=== PATIENT | male | born 1970 | race Caucasian/White ===

== ENCOUNTER 2018-05-07 11:20 | Emergency (ER) | payer OTHER, MEDICAID | END 2018-05-07 12:59 | disposition home or self-care (01) | LOC: FTE 11:20 | DX: K08.89 Other specified disorders of teeth and supporting structures (principal); F17.210 Nicotine dependence, cigarettes, uncomplicated | CPT/HCPCS: 99283; Z7502 ==

== ENCOUNTER 2018-05-22 14:45 | Emergency (ER) | payer OTHER | END 2018-05-22 16:00 | disposition home or self-care (01) | LOC: FTE 14:45 | DX: R20.2 Paresthesia of skin (principal); Z87.891 Personal history of nicotine dependence | CPT/HCPCS: 99282; Z7502 ==

== ENCOUNTER 2018-05-27 17:44 | Emergency (ER) | payer SELFPAY, OTHER | END 2018-05-27 20:12 | disposition left against medical advice (07) | LOC: FTE 20:12 | DX: Z53.21 Procedure and treatment not carried out due to patient leaving prior to being seen by health care provider (principal) ==

== ENCOUNTER 2018-06-03 08:37 | Emergency (ER) | payer OTHER ==
[2018-06-03] MEDS: KETOROLAC 30 MG INJ IM (09:09)
== END 2018-06-03 09:17 | disposition home or self-care (01) ==
LOC: FTE 08:37
DX: M79.641 Pain in right hand (principal); Z87.891 Personal history of nicotine dependence
CPT/HCPCS: 96372; 99284-25

== ENCOUNTER 2018-06-07 02:59 | Emergency (ER) | payer OTHER | END 2018-06-07 04:35 | disposition left against medical advice (07) | LOC: FTE 02:59 | DX: K08.89 Other specified disorders of teeth and supporting structures (principal) | CPT/HCPCS: 99282; Z7502 ==

== ENCOUNTER 2018-06-09 08:41 | Emergency (ER) | payer OTHER | END 2018-06-09 10:25 | disposition home or self-care (01) | LOC: FTE 08:41 | DX: R20.2 Paresthesia of skin (principal); F17.210 Nicotine dependence, cigarettes, uncomplicated | CPT/HCPCS: 73060; 73060-50; 73090; 73090-RT; 73550; 99284-25 ==

== ENCOUNTER 2018-06-26 01:42 | Emergency (ER) | payer OTHER ==
[2018-06-26] MEDS: IBUPROFEN 600 MG TAB PO (02:13)
== END 2018-06-26 02:21 | disposition home or self-care (01) ==
LOC: FTE 01:42
DX: K08.89 Other specified disorders of teeth and supporting structures (principal)
CPT/HCPCS: 99282; Z7502

== ENCOUNTER 2018-07-11 15:41 | Emergency (ER) | payer OTHER ==
[2018-07-11] MEDS: KETOROLAC 30 MG INJ IM (16:33)
== END 2018-07-11 17:04 | disposition home or self-care (01) ==
LOC: FTE 15:41
DX: K08.89 Other specified disorders of teeth and supporting structures (principal); F17.210 Nicotine dependence, cigarettes, uncomplicated
CPT/HCPCS: 96372; 99284-25; J1885

== ENCOUNTER 2018-07-26 13:03 | Emergency (ER) | payer OTHER ==
[2018-07-26] MEDS: KETOROLAC 60 MG INJ IM (13:56)
[2018-07-26] MEDS: CEPHALEXIN 500 MG CAP PO (13:56)
[2018-07-26] MEDS: HYDROCODONE/APAP (5/325) TAB PO (13:57)
== END 2018-07-26 14:58 | disposition home or self-care (01) ==
LOC: FTE 13:03
DX: K08.89 Other specified disorders of teeth and supporting structures (principal)
CPT/HCPCS: 96372; 99284-25

== ENCOUNTER 2018-08-16 05:08 | Emergency (ER) | payer OTHER | END 2018-08-16 06:29 | disposition home or self-care (01) | LOC: FTE 05:08 | DX: F41.9 Anxiety disorder, unspecified (principal); F17.210 Nicotine dependence, cigarettes, uncomplicated | CPT/HCPCS: 99283; Z7502 ==

== ENCOUNTER 2018-12-08 14:55 | Emergency (ER) | payer OTHER ==
[2018-12-08] MEDS: KETOROLAC 60 MG INJ IM (15:46)
== END 2018-12-08 18:01 | disposition left against medical advice (07) ==
LOC: FTE 14:55
DX: M54.5 Low back pain (principal)
CPT/HCPCS: 72100; 96372; 99284-25